=== PATIENT | female | born 1990 | race Caucasian/White ===

== ENCOUNTER 2019-04-10 20:13 | Outpatient (CLI) | payer BC | END 2019-04-10 23:23 | disposition home or self-care (01) | LOC: OBT 20:13 → L-D 20:15 → OBT 23:23 | DX: O26.893 Other specified pregnancy related conditions, third trimester (principal); R10.2 Pelvic and perineal pain; Z3A.36 36 weeks gestation of pregnancy | CPT/HCPCS: 76818 ==

== ENCOUNTER 2019-05-07 18:22 | Inpatient (IN) | payer BC ==
[2019-05-07] MEDS ORDERED: CARBOPROST 250 MCG INJ IM (20:00)
[2019-05-07] MEDS ORDERED: OXYTOCIN 30 UNITS/LR 500 ML IV (20:00)
[2019-05-07] MEDS ORDERED: IBUPROFEN 600 MG TAB PO (20:00)
[2019-05-07] MEDS ORDERED: MISOPROSTOL 200 MCG TAB PR (20:00)
[2019-05-07] MEDS ORDERED: LIDOCAINE 1% (MPF) 30 ML INJ INJ (20:00)
[2019-05-07] MEDS ORDERED: METHYLERGONOVINE 0.2 MG INJ IM (20:00)
[2019-05-07] MEDS ORDERED: FENTAnyl 50 MCG/ML VIAL IV (20:00)
[2019-05-07] MEDS: LACTATED RINGER'S 1,000 ML IV ×4 (20:35→22:41)
[2019-05-07 21:01] LABS: ADD MAN DIFF? NO
[2019-05-07 21:04] LABS: WHITE BLOOD COUNT 10.3 10^3/ul (4.8-10.8)
[2019-05-07 21:04] LABS: BASOPHILS % 0.3 % (0.0-2.0); EOSINOPHILS # 0.1 10^3/ul (0.0-0.5); EOSINOPHILS % 0.6 % (0.0-7.0); HEMATOCRIT 31.9 % (37.0-47.0); HEMOGLOBIN 10.2 g/dl (12.0-16.0); LYMPHOCYTES # 2.3 10^3/ul (0.8-2.9); LYMPHOCYTES % 22.5 % (15.0-51.0); MEAN CORPUSCULAR HEMOGLOBIN 27.3 pg (29.0-33.0); MEAN CORPUSCULAR VOLUME 85.5 fl (82.0-101.0); MEAN PLATELET VOLUME 10.1 fl (7.4-10.4); MONOCYTE # 0.7 10^3/ul (0.3-0.9); MONOCYTES % 6.4 % (0.0-11.0); NEUTROPHIL # 7.2 10^3/ul (1.6-7.5); NEUTROPHILS % 69.7 % (39.0-77.0); PLATELET COUNT 265 10^3/UL (140-415); RED BLOOD COUNT 3.73 10^6/ul (4.20-5.40); RED CELL DISTRIBUTION WIDTH 13.9 % (11.5-14.5)
[2019-05-07] MEDS ORDERED: FENTAnyl 2MCG/ML-ROPIV 0.2% 100 ML (21:25)
[2019-05-07 21:33] LABS: INR 0.87; PROTIME 11.9 Sec (11.9-14.9); PT RATIO 0.9
[2019-05-07 21:34] LABS: PARTIAL THROMBOPLASTIN TIME 27.3 Sec (23.0-35.0)
[2019-05-07 21:57] LABS: HEPATITIS B SURFACE ANTIGEN NEGATIVE (NEGATIVE)
[2019-05-07] MEDS ORDERED: NALOXONE (0.4 MG/ML) INJ IV (22:00)
[2019-05-07] MEDS: OXYTOCIN 30 UNITS/LR 500 ML IV (23:47)
[2019-05-08] MEDS: CITRIC ACID/NA CITRATE 30 ML CUP PO ×3 (02:00→18:00)
[2019-05-08] MEDS: FENTAnyl 2MCG/ML-ROPIV 0.2% 100 ML BAG EPI (03:39)
[2019-05-08] MEDS: LACTATED RINGER'S 1,000 ML IV (06:20)
[2019-05-08] MEDS ORDERED: MINERAL OIL LIGHT 10 ML VIAL TOP (09:30)
[2019-05-08] MEDS: MINERAL OIL LIGHT 10 ML VIAL TOP (09:34)
[2019-05-08] MEDS: OXYTOCIN 30 UNITS/LR 500 ML IV ×2 (09:40→09:44)
[2019-05-08] MEDS ORDERED: SENNA/DOCUSATE NA (8.6MG/50MG) TAB PO (10:00)
[2019-05-08] MEDS ORDERED: DIBUCAINE 1% 30 GM OINT TOP (10:00)
[2019-05-08] MEDS ORDERED: DIPHENHYDRAMINE 50 MG INJ IV (10:00)
[2019-05-08] MEDS ORDERED: OXYTOCIN 30 UNITS/LR 500 ML IV (10:00)
[2019-05-08] MEDS ORDERED: LANOLIN HPA 1 PKT TOP (10:00)
[2019-05-08] MEDS ORDERED: ONDANSETRON 4 MG INJ IV (10:00)
[2019-05-08] MEDS ORDERED: NA PHOSPHATE/BIPHOS 133 ML ENEMA PR (10:00)
[2019-05-08] MEDS ORDERED: DIPHENHYDRAMINE 25 MG CAP PO (10:00)
[2019-05-08] MEDS ORDERED: WITCH HAZEL/GLYCERIN PAD PR (10:00)
[2019-05-08] MEDS ORDERED: CARBOPROST 250 MCG INJ IM (10:00)
[2019-05-08] MEDS ORDERED: MISOPROSTOL 200 MCG TAB PR (10:00)
[2019-05-08] MEDS ORDERED: MAGNESIUM HYDROXIDE 30ML CUP PO (10:00)
[2019-05-08] MEDS ORDERED: ONDANSETRON 4 MG TAB PO (10:00)
[2019-05-08] MEDS: IBUPROFEN 600 MG TAB PO ×2 (12:31→17:48)
[2019-05-08] MEDS: BENZOCAINE 20% 56 ML SPRAY TOP (12:32)
[2019-05-08] MEDS ORDERED: HYDROCODONE/APAP (5/325) TAB PO (13:30)
[2019-05-08] MEDS: HYDROCODONE/APAP (5/325) TAB PO (14:06)
[2019-05-08 15:23] LABS: RAPID PLASMA REAGIN NONREACTIVE (NR)
[2019-05-08] MEDS: LACTATED RINGER'S 1,000 ML IV* ×2 (15:39→17:49)
[2019-05-08] MEDS: SENNA/DOCUSATE NA (8.6MG/50MG) TAB PO (20:35)
[2019-05-09] MEDS: IBUPROFEN 600 MG TAB PO ×4 (00:01→18:00)
[2019-05-09] MEDS: LACTATED RINGER'S 1,000 ML IV* ×2 (02:00→20:37)
[2019-05-09] MEDS: CITRIC ACID/NA CITRATE 30 ML CUP PO ×2 (02:00→20:37)
[2019-05-09 07:39] LABS: ADD MAN DIFF? NO
[2019-05-09 07:42] LABS: BASOPHILS % 0.2 % (0.0-2.0); EOSINOPHILS # 0.1 10^3/ul (0.0-0.5); EOSINOPHILS % 0.6 % (0.0-7.0); HEMATOCRIT 31.1 % (37.0-47.0); HEMOGLOBIN 9.4 g/dl (12.0-16.0); LYMPHOCYTES # 2.5 10^3/ul (0.8-2.9); MEAN CORPUSCULAR HEMOGLOBIN 26.9 pg (29.0-33.0); MEAN CORPUSCULAR HGB CONC 30.2 g/dl (32.0-37.0); MEAN CORPUSCULAR VOLUME 88.9 fl (82.0-101.0); MEAN PLATELET VOLUME 10.2 fl (7.4-10.4); MONOCYTE # 0.6 10^3/ul (0.3-0.9); MONOCYTES % 5.5 % (0.0-11.0); NEUTROPHIL # 7.2 10^3/ul (1.6-7.5); NEUTROPHILS % 69.2 % (39.0-77.0); PLATELET COUNT 225 10^3/UL (140-415); RED CELL DISTRIBUTION WIDTH 13.9 % (11.5-14.5)
[2019-05-09 07:42] LABS: WHITE BLOOD COUNT 10.4 10^3/ul (4.8-10.8)
[2019-05-09] MEDS: SENNA/DOCUSATE NA (8.6MG/50MG) TAB PO ×2 (11:39→21:00)
[2019-05-09] MEDS: SUMATRIPTAN 25 MG TAB PO ×2 (17:46→19:49)
[2019-05-09] MEDS: ACET/BUTAL/CAFF TAB PO ×2 (17:46→19:49)
[2019-05-09] MEDS ORDERED: ACET/BUTAL/CAFF TAB PO (19:30)
[2019-05-09] MEDS ORDERED: SUMATRIPTAN 25 MG TAB PO (19:30)
[2019-05-09] MEDS: IBUPROFEN 800 MG TAB PO (19:48)
[2019-05-10] MEDS ORDERED: VARICELLA VACCINE LIVE/PF 1,350 UNIT/0.5 ML ML SC* (09:00)
[2019-05-10] MEDS ORDERED: MEASLES,MUMPS,RUBELLA VACCINE INJ SC* (09:00)
[2019-05-10] MEDS ORDERED: DIPHTH/TET/ACEL PERTUSS (ADULT) 0.5 ML VIAL IM* (09:00)
== END 2019-05-09 22:05 | disposition home or self-care (01) | DRG 807 ==
LOC: OBT 18:22 → L-D 18:22 → PP1 05-08 11:27 → L-D 18:28 → OBT 19:52 → L-D 20:00
PROVIDERS: Obstetrics & Gynecology
PROC: 10E0XZZ Delivery of Products of Conception, External Approach (ICD-10-PCS; principal; 2019-05-08)
PROC: 3E0R3GC Introduction of Other Therapeutic Substance into Spinal Canal, Percutaneous Approach (ICD-10-PCS; 2019-05-09)
DX: O48.0 Post-term pregnancy (principal); Z37.0 Single live birth; Z3A.40 40 weeks gestation of pregnancy; G97.1 Other reaction to spinal and lumbar puncture
CPT/HCPCS: 62322; 82962; 85025; 85610; 85730; 86592; 86850; 86900; 86901; 87340; 99464